=== PATIENT | male | born 1980 | race Caucasian/White ===

== ENCOUNTER 2018-10-06 09:15 | Emergency (ER) | payer BC ==
[2018-10-06 09:33] VITALS: BP 119/82
--- NOTE | 2018-10-06 09:57 | UC ---
Throat Pain/Nasal Fernie HPI - HPI Summary HPI Summary: nasal congestion x 4 days pnd , sinus pain and pressure, cough no fever, no chills - History of Current Complaint Chief Complaint: UCGeneralIllness Stated Complaint: EARS,SINUSES,HEADACHE Time Seen by Provider: 10/06/18 09:44 Hx Obtained From: Patient Onset/Duration: Gradual Onset, Lasting Days - 4, Still Present Severity: Moderate Pain Intensity: 5 Cough: Nonproductive Associated Signs & Symptoms: Positive: Sinus Discomfort, Nasal Discharge. Negative: Wheezing, Hoarseness, Fever, Vomiting, Rash - Allergies/Home Medications Allergies/Adverse Reactions: Allergies Allergy/AdvReac Type Severity Reaction Status Date / Time No Known Allergies Allergy Verified 10/06/18 09:28 Home Medications: Home Medications Ibuprofen [Motrin Ib] 400 mg PO Q6H PRN 10/06/18 [History Confirmed 10/06/18] PMH/Surg Hx/FS Hx/Imm Hx Previously Healthy: Yes - Surgical History Surgical History: Yes Surgery Procedure, Year, and Place: appy - Family History Known Family History: Negative: Diabetes - Social History Alcohol Use: Weekly Substance Use Type: None Smoking Status (MU): Never Smoked Tobacco Review of Systems All Other Systems Reviewed And Are Negative: Yes Constitutional: Positive: Negative Skin: Positive: Negative Eyes: Positive: Negative ENT: Positive: Sore Throat, Nasal Discharge, Sinus Congestion, Sinus Pain/ Tenderness Respiratory: Positive: Cough Cardiovascular: Positive: Negative Is Patient Immunocompromised?: No Physical Exam Triage Information Reviewed: Yes Appearance: Well-Appearing, No Pain Distress, Well-Nourished Vital Signs: Initial Vital Signs Temp 97.6 F 10/06/18 09:30 Pulse 102 10/06/18 09:30 Resp 20 10/06/18 09:30 BP 119/82 10/06/18 09:30 Pulse Ox 96 10/06/18 09:30 Vital Signs Reviewed: Yes Eye Exam: Normal Eyes: Positive: Conjunctiva Clear ENT: Positive: Normal ENT inspection, Hearing grossly normal, Pharyngeal erythema, Nasal congestion, Nasal drainage, TMs normal. Negative: TM bulging, TM dull, TM red, Tonsillar swelling, Tonsillar exudate, Sinus tenderness Neck: Positive: Supple, Nontender, No Lymphadenopathy Respiratory: Positive: Chest non-tender, Lungs clear, Normal breath sounds Cardiovascular: Positive: RRR, No Murmur, Pulses Normal Abdominal Exam: Normal Throat Pain/Nasal Course/Dx - Differential Dx/Diagnosis Provider Diagnosis: URI (upper respiratory infection) Discharge - Sign-Out/Discharge Documenting (check all that apply): Patient Departure All imaging exams completed and their final reports reviewed: No Studies - Discharge Plan Condition: Stable Disposition: HOME Patient Education Materials: Upper Respiratory Infection (DC) Referrals: No Primary Care Phys,NOPCP [Primary Care Provider] - If Needed Additional Instructions: viral illness no need for antibiotics increase fluid, try Flonase nasal spray daily - Billing Disposition and Condition Condition: STABLE Disposition: Home
== END 2018-10-06 09:59 | disposition home or self-care (01) ==
LOC: UCCORT 09:15
DX: J06.9 Acute upper respiratory infection, unspecified (principal)
CPT/HCPCS: 99201; G0463